=== PATIENT | female | born 1935 | race Caucasian/White ===

== ENCOUNTER 2016-07-29 08:53 | Inpatient (IN) | payer MEDICARE, BC ==
[2016-07-29] MEDS: SODIUM CHLORIDE 0.9% FLUSH 10 ML SOL IV PRN ×4 (09:15→21:50)
[2016-07-29 09:18] LABS: BASOPHILS % (AUTO) 1 % (0-3); EOSINOPHILS % (AUTO) 1 % (0-9); HEMATOCRIT 36 % (35-47); MEAN CORPUSCULAR HGB CONC 31.4 gm/dl (32.0-36.0); MONOCYTES % (AUTO) 7.7 % (0-12); NEUTROPHILS % (AUTO) 78.7 % (37-80)
[2016-07-29 09:19] LABS: MEAN CORPUSCULAR VOLUME 79 fL (81-99)
[2016-07-29] MEDS ORDERED: FUROSEMIDE 100 MG SOL ONE (09:30)
[2016-07-29] MEDS ORDERED: MORPHINE SULFATE 10 MG/ML SOL IV ONE (09:36)
[2016-07-29] MEDS ORDERED: FUROSEMIDE 40 MG SOL IV ONE (09:36)
[2016-07-29 09:37] LABS: CALCIUM 8.7 mg/dl (8.5-10.1); POTASSIUM 4.9 mMol/L (3.5-5.1)
[2016-07-29 09:46] LABS: ANISOCYTOSIS SLIGHT AMT
[2016-07-29 09:47] LABS: OVALOCYTES PRESENT
[2016-07-29] MEDS ORDERED: MORPHINE SULFATE 10 MG/ML SOL ONE (09:56)
[2016-07-29] MEDS ORDERED: METOLAZONE 2.5 MG TAB PO ONE (10:23)
[2016-07-29] MEDS ORDERED: LABETALOL HYDROCHLORIDE 5 MG/ML SOL IV ONE ×2 (11:00→11:10)
[2016-07-29] MEDS ORDERED: HYDRALAZINE HYDROCHLORIDE 20 MG/ML SOL IV ONE (11:00)
[2016-07-29] MEDS ORDERED: HYDRALAZINE HYDROCHLORIDE 20 MG/ML SOL ONE (11:02)
[2016-07-29] MEDS ORDERED: LABETALOL HYDROCHLORIDE 5 MG/ML SOL IV PRN (13:04)
[2016-07-29] MEDS ORDERED: PATIENT EDUCATION 1 MISC ONE (14:03)
[2016-07-29] MEDS: CARVEDILOL 12.5 MG TAB PO SCH ×2 (15:08→21:45)
[2016-07-29] MEDS: GLIPIZIDE 2.5 MG TER PO SCH ×2 (15:08→21:45)
[2016-07-29] MEDS: LOSARTAN POTASSIUM 50 MG TAB PO SCH (15:08)
[2016-07-29] MEDS: ASPIRIN 81 MG CHEWABLE CTB PO SCH (15:08)
[2016-07-29] MEDS: POTASSIUM CHLORIDE 10 MEQ TER PO SCH (15:09)
[2016-07-29] MEDS: AMOXICILLIN 125/5 ML BOTTLE PO SCH (15:09)
[2016-07-29] MEDS: ENOXAPARIN 40 MG SOL SC SCH (15:09)
[2016-07-29] MEDS: FUROSEMIDE 40 MG SOL IV SCH ×2 (15:10→21:50)
[2016-07-29] MEDS: ROPINIROLE HYDROCHLORIDE 0.25 MG PO SCH (21:45)
[2016-07-29] MEDS: METFORMIN HYDROCHLORIDE 500 MG TAB PO SCH (21:45)
[2016-07-30] MEDS: LEVOTHYROXINE SODIUM 50 MCG TAB PO SCH (06:47)
[2016-07-30] MEDS ORDERED: METOLAZONE 2.5 MG TAB PO SCH (07:00)
[2016-07-30 07:39] LABS: CALCIUM 8.2 mg/dl (8.5-10.1); POTASSIUM 4.3 mMol/L (3.5-5.1)
[2016-07-30] MEDS: CARVEDILOL 12.5 MG TAB PO SCH ×2 (08:49→21:02)
[2016-07-30] MEDS: GLIPIZIDE 2.5 MG TER PO SCH ×2 (08:49→21:01)
[2016-07-30] MEDS: LOSARTAN POTASSIUM 50 MG TAB PO SCH (08:49)
[2016-07-30] MEDS: ASPIRIN 81 MG CHEWABLE CTB PO SCH (08:49)
[2016-07-30] MEDS: METFORMIN HYDROCHLORIDE 500 MG TAB PO SCH ×2 (08:50→20:04)
[2016-07-30] MEDS: POTASSIUM CHLORIDE 10 MEQ TER PO SCH (08:50)
[2016-07-30] MEDS: ENOXAPARIN 40 MG SOL SC SCH (08:51)
[2016-07-30] MEDS ORDERED: FAMOTIDINE 20 MG TAB PO PRN (09:00)
[2016-07-30] MEDS ORDERED: FUROSEMIDE 40 MG SOL IV SCH (09:30)
[2016-07-30] MEDS ORDERED: AMLODIPINE 5 MG TAB PO SCH (10:31)
[2016-07-30] MEDS: AMOXICILLIN 125/5 ML BOTTLE PO SCH (10:34)
[2016-07-30] MEDS: SODIUM CHLORIDE 0.9% FLUSH 10 ML SOL IV PRN ×2 (10:35→21:03)
[2016-07-30 21:00] VITALS: RESP 20
[2016-07-30] MEDS: ROPINIROLE HYDROCHLORIDE 0.25 MG PO SCH (21:01)
[2016-07-31] MEDS: LEVOTHYROXINE SODIUM 50 MCG TAB PO SCH (06:24)
[2016-07-31 07:34] LABS: CALCIUM 7.9 mg/dl (8.5-10.1); POTASSIUM 4.7 mMol/L (3.5-5.1)
[2016-07-31 07:39] LABS: BASOPHILS % (AUTO) 1 % (0-3); EOSINOPHILS % (AUTO) 1 % (0-9); HEMATOCRIT 30 % (35-47); MEAN CORPUSCULAR HGB CONC 33.7 gm/dl (32.0-36.0); MONOCYTES % (AUTO) 9.9 % (0-12); NEUTROPHILS % (AUTO) 72.5 % (37-80)
[2016-07-31 07:42] LABS: MEAN CORPUSCULAR VOLUME 79 fL (81-99)
[2016-07-31] MEDS ORDERED: FUROSEMIDE 40 MG SOL IV SCH (09:00)
[2016-07-31] MEDS: CARVEDILOL 12.5 MG TAB PO SCH ×2 (09:18→20:09)
[2016-07-31] MEDS: AMOXICILLIN 125/5 ML BOTTLE PO SCH (09:18)
[2016-07-31] MEDS: ASPIRIN 81 MG CHEWABLE CTB PO SCH (09:18)
[2016-07-31] MEDS: POTASSIUM CHLORIDE 10 MEQ TER PO SCH (09:19)
[2016-07-31] MEDS: GLIPIZIDE 2.5 MG TER PO SCH ×2 (09:19→20:09)
[2016-07-31] MEDS: AMLODIPINE 5 MG TAB PO SCH (09:20)
[2016-07-31] MEDS: ENOXAPARIN 40 MG SOL SC SCH (09:20)
[2016-07-31] MEDS: FUROSEMIDE 40 MG TAB PO SCH (09:23)
[2016-07-31] MEDS: TRADJENTA 5 MG PO SCH (13:23)
[2016-07-31] MEDS: ROPINIROLE HYDROCHLORIDE 0.25 MG PO SCH (20:10)
[2016-08-01] MEDS: LEVOTHYROXINE SODIUM 50 MCG TAB PO SCH (06:41)
[2016-08-01 07:24] LABS: CALCIUM 8.2 mg/dl (8.5-10.1); POTASSIUM 4.2 mMol/L (3.5-5.1)
[2016-08-01 08:01] VITALS: BP 133/64; PULSE 67; TEMP 97.2; O2SAT 94
[2016-08-01] MEDS: AMOXICILLIN 125/5 ML BOTTLE PO SCH (08:48)
[2016-08-01] MEDS: ASPIRIN 81 MG CHEWABLE CTB PO SCH (08:49)
[2016-08-01] MEDS: CARVEDILOL 12.5 MG TAB PO SCH (08:49)
[2016-08-01] MEDS: POTASSIUM CHLORIDE 10 MEQ TER PO SCH (08:50)
[2016-08-01] MEDS: GLIPIZIDE 2.5 MG TER PO SCH (08:50)
[2016-08-01] MEDS: FUROSEMIDE 40 MG TAB PO SCH (08:50)
[2016-08-01] MEDS: ENOXAPARIN 40 MG SOL SC SCH (08:51)
[2016-08-01] MEDS: TRADJENTA 5 MG PO SCH (08:51)
[2016-08-01] MEDS: AMLODIPINE 5 MG TAB PO SCH (08:51)
== END 2016-08-01 11:02 | disposition home or self-care (01) | DRG 292 ==
LOC: ED 08:53 → ACUTE CARE 12:09
PROVIDERS: ADMIT Family Medicine; ATTEND Family Medicine
DX: I50.9 Heart failure, unspecified (principal); I16.9 Hypertensive crisis, unspecified; I13.0 Hypertensive heart and chronic kidney disease with heart failure and stage 1 through stage 4 chronic kidney disease, or unspecified chronic kidney disease; N18.3 Chronic kidney disease, stage 3 (moderate); Z85.3 Personal history of malignant neoplasm of breast; E11.9 Type 2 diabetes mellitus without complications; E03.9 Hypothyroidism, unspecified; Z79.84 Long term (current) use of oral hypoglycemic drugs; R60.0 Localized edema; R09.02 Hypoxemia; R91.8 Other nonspecific abnormal finding of lung field
CPT/HCPCS: 36415; 51798; 71010; 71275; 80048; 82962; 83880; 84484; 85025; 85378; 93005; 93012; 93306; 94760; 94762; 96374; 96375; 99284; 99285; J0360; J1650; J1940; J2270; Q9967

== ENCOUNTER 2016-10-21 13:32 | Inpatient (IN) | payer MEDICARE, BC ==
[2016-10-21] MEDS ORDERED: FUROSEMIDE 20mg SOL IV ONE (14:13)
[2016-10-21] MEDS ORDERED: SOLUMEDROL 125 MG/2 ML 125 MG/2 ML PDS IV ONE (14:14)
[2016-10-21] MEDS ORDERED: ALBUTEROL NEB SOL 2.5MG/3ML 1 VIAL SOL NEB PRN (14:32)
[2016-10-21] MEDS: ALBUTEROL/IPRATROPIUM 1 VIAL SOL INH SCH ×2 (15:08→21:08)
[2016-10-21] MEDS: NOVOLOG FLEXPEN SC SCH ×2 (16:26→21:11)
[2016-10-21] MEDS ORDERED: RANITIDINE HCL 150 MG TAB PO PRN (20:12)
[2016-10-21] MEDS: GLIPIZIDE 2.5 MG TER PO SCH ×2 (21:12→22:49)
[2016-10-21] MEDS: CARVEDILOL 12.5 MG TAB PO SCH (21:12)
[2016-10-21] MEDS: ENOXAPARIN 40 MG SOL SC SCH (21:13)
[2016-10-21] MEDS: SODIUM CHLORIDE 0.9% FLUSH 10 ML SOL IV SCH (21:14)
[2016-10-21] MEDS: SOLUMEDROL 125 MG/2 ML 125 MG/2 ML PDS IV SCH (21:14)
[2016-10-21] MEDS: ROPINIROLE HCL 1 MG TAB PO SCH (22:49)
[2016-10-22] MEDS: ALBUTEROL/IPRATROPIUM 1 VIAL SOL INH SCH ×4 (01:35→20:30)
[2016-10-22] MEDS: SODIUM CHLORIDE 0.9% FLUSH 10 ML SOL IV SCH ×7 (02:43→20:48)
[2016-10-22] MEDS: SOLUMEDROL 125 MG/2 ML 125 MG/2 ML PDS IV SCH ×4 (02:43→20:25)
[2016-10-22] MEDS ORDERED: LEVOTHYROXINE 0.025MG 0.025 MG TAB PO SCH (07:00)
[2016-10-22 07:33] LABS: ALBUMIN 3.1 gm/dl (3.4-5.0); CALCIUM 8.8 mg/dl (8.5-10.1)
[2016-10-22] MEDS ORDERED: SODIUM CHLORIDE 0.9% 500 ML 500 ML IV ONE (07:46)
[2016-10-22 07:50] LABS: BASOPHILS % (AUTO) 0 % (0-3); EOSINOPHILS % (AUTO) 0 % (0-9); HEMATOCRIT 32 % (35-47); MEAN CORPUSCULAR HGB CONC 32.5 gm/dl (32.0-36.0); MONOCYTES % (AUTO) 0.8 % (0-12); NEUTROPHILS % (AUTO) 92.4 % (37-80)
[2016-10-22 07:54] LABS: MEAN CORPUSCULAR VOLUME 79 fL (81-99)
[2016-10-22] MEDS ORDERED: ROPINIROLE HCL 1 MG TAB PO PRN (08:08)
[2016-10-22] MEDS: NOVOLOG FLEXPEN SC SCH ×4 (08:43→20:38)
[2016-10-22] MEDS: GLIPIZIDE 2.5 MG TER PO SCH ×2 (08:46→20:23)
[2016-10-22] MEDS: AMLODIPINE 5 MG TAB PO SCH (08:47)
[2016-10-22] MEDS: ASPIRIN 81 MG CHEWABLE CTB PO SCH (08:47)
[2016-10-22] MEDS: CARVEDILOL 12.5 MG TAB PO SCH ×2 (08:47→20:23)
[2016-10-22] MEDS ORDERED: FAMOTIDINE 20 MG TAB PO PRN (10:07)
[2016-10-22] MEDS: TRADJENTA 5 MG PO SCH (14:05)
[2016-10-22] MEDS: LEVOTHYROXINE SODIUM 112 MCG TAB PO SCH (14:06)
[2016-10-22] MEDS: ENOXAPARIN 40 MG SOL SC SCH (20:38)
[2016-10-22] MEDS: ROPINIROLE HCL 1 MG TAB PO SCH (20:48)
[2016-10-23] MEDS: ALBUTEROL/IPRATROPIUM 1 VIAL SOL INH SCH ×4 (02:29→20:34)
[2016-10-23] MEDS: SOLUMEDROL 125 MG/2 ML 125 MG/2 ML PDS IV SCH ×2 (02:29→08:47)
[2016-10-23] MEDS: SODIUM CHLORIDE 0.9% FLUSH 10 ML SOL IV SCH ×5 (02:30→20:34)
[2016-10-23] MEDS: LEVOTHYROXINE SODIUM 112 MCG TAB PO SCH (07:28)
[2016-10-23 08:04] LABS: CALCIUM 8.2 mg/dl (8.5-10.1); POTASSIUM 4.7 mMol/L (3.5-5.1)
[2016-10-23] MEDS: NOVOLOG FLEXPEN SC SCH ×4 (08:40→20:31)
[2016-10-23] MEDS: GLIPIZIDE 2.5 MG TER PO SCH ×2 (08:41→20:33)
[2016-10-23] MEDS: ASPIRIN 81 MG CHEWABLE CTB PO SCH (08:42)
[2016-10-23] MEDS: CARVEDILOL 12.5 MG TAB PO SCH ×2 (08:42→20:33)
[2016-10-23] MEDS: AMLODIPINE 5 MG TAB PO SCH (08:43)
[2016-10-23] MEDS: TRADJENTA 5 MG PO SCH (08:43)
[2016-10-23] MEDS: PREDNISONE 20 MG TAB PO SCH (12:19)
[2016-10-23] MEDS: ENOXAPARIN 40 MG SOL SC SCH (20:32)
[2016-10-23] MEDS: ROPINIROLE HCL 1 MG TAB PO SCH (20:33)
[2016-10-24] MEDS: ALBUTEROL/IPRATROPIUM 1 VIAL SOL INH SCH ×4 (02:40→21:01)
[2016-10-24] MEDS: SODIUM CHLORIDE 0.9% FLUSH 10 ML SOL IV SCH ×4 (02:53→20:54)
[2016-10-24] MEDS: LEVOTHYROXINE SODIUM 112 MCG TAB PO SCH (07:31)
[2016-10-24 07:39] LABS: CALCIUM 7.9 mg/dl (8.5-10.1); POTASSIUM 4.2 mMol/L (3.5-5.1)
[2016-10-24 07:55] LABS: BASOPHILS % (AUTO) 0 % (0-3); EOSINOPHILS % (AUTO) 0 % (0-9); HEMATOCRIT 27 % (35-47); MEAN CORPUSCULAR HGB CONC 32.1 gm/dl (32.0-36.0); MONOCYTES % (AUTO) 5.1 % (0-12); NEUTROPHILS % (AUTO) 90.1 % (37-80)
[2016-10-24 07:59] LABS: MEAN CORPUSCULAR VOLUME 79 fL (81-99)
[2016-10-24] MEDS: PREDNISONE 20 MG TAB PO SCH (08:41)
[2016-10-24] MEDS: GLIPIZIDE 2.5 MG TER PO SCH ×2 (08:41→20:53)
[2016-10-24] MEDS: CARVEDILOL 12.5 MG TAB PO SCH ×2 (08:42→20:53)
[2016-10-24] MEDS: NOVOLOG FLEXPEN SC SCH ×4 (08:42→21:04)
[2016-10-24] MEDS: TRADJENTA 5 MG PO SCH (08:42)
[2016-10-24] MEDS: AMLODIPINE 5 MG TAB PO SCH (08:42)
[2016-10-24] MEDS: ASPIRIN 81 MG CHEWABLE CTB PO SCH (08:52)
[2016-10-24] MEDS: ROPINIROLE HCL 1 MG TAB PO SCH (20:52)
[2016-10-24] MEDS: ENOXAPARIN 40 MG SOL SC SCH (20:54)
[2016-10-25] MEDS: ALBUTEROL/IPRATROPIUM 1 VIAL SOL INH SCH ×2 (03:35→07:57)
[2016-10-25] MEDS: SODIUM CHLORIDE 0.9% FLUSH 10 ML SOL IV SCH ×2 (03:45→13:41)
[2016-10-25] MEDS: LEVOTHYROXINE SODIUM 112 MCG TAB PO SCH (06:43)
[2016-10-25 07:27] LABS: CALCIUM 8.2 mg/dl (8.5-10.1)
[2016-10-25 07:30] LABS: BASOPHILS % (AUTO) 0 % (0-3); EOSINOPHILS % (AUTO) 0 % (0-9); HEMATOCRIT 31 % (35-47); MEAN CORPUSCULAR HGB CONC 31.9 gm/dl (32.0-36.0); MONOCYTES % (AUTO) 10.1 % (0-12); NEUTROPHILS % (AUTO) 81.8 % (37-80)
[2016-10-25 07:40] LABS: MEAN CORPUSCULAR VOLUME 79 fL (81-99)
[2016-10-25 08:01] VITALS: PULSE 72; RESP 20; O2SAT 95
[2016-10-25 08:24] VITALS: BP 118/78; TEMP 97.5
[2016-10-25] MEDS: NOVOLOG FLEXPEN SC SCH ×2 (08:25→13:41)
[2016-10-25] MEDS: GLIPIZIDE 2.5 MG TER PO SCH (08:27)
[2016-10-25] MEDS: AMLODIPINE 5 MG TAB PO SCH (08:27)
[2016-10-25] MEDS: CARVEDILOL 12.5 MG TAB PO SCH (08:27)
[2016-10-25] MEDS: ASPIRIN 81 MG CHEWABLE CTB PO SCH (08:27)
[2016-10-25] MEDS: PREDNISONE 20 MG TAB PO SCH (08:28)
[2016-10-25] MEDS: TRADJENTA 5 MG PO SCH (08:28)
== END 2016-10-25 13:30 | disposition home or self-care (01) | DRG 192 ==
LOC: ACUTE CARE 13:32
PROVIDERS: ADMIT Emergency Medicine; ATTEND Emergency Medicine
PROC: 5A09357 Assistance with Respiratory Ventilation, Less than 24 Consecutive Hours, Continuous Positive Airway Pressure (ICD-10-PCS; principal; 2016-10-22)
PROC: 5A09357 Assistance with Respiratory Ventilation, Less than 24 Consecutive Hours, Continuous Positive Airway Pressure (ICD-10-PCS; 2016-10-23)
DX: J44.1 Chronic obstructive pulmonary disease with (acute) exacerbation (principal); E11.22 Type 2 diabetes mellitus with diabetic chronic kidney disease; Z99.81 Dependence on supplemental oxygen; D64.9 Anemia, unspecified; G47.33 Obstructive sleep apnea (adult) (pediatric); N18.3 Chronic kidney disease, stage 3 (moderate); E03.9 Hypothyroidism, unspecified; Z79.4 Long term (current) use of insulin; R91.8 Other nonspecific abnormal finding of lung field; R60.9 Edema, unspecified
CPT/HCPCS: 36415; 71250; 80048; 80053; 82272; 82962; 83880; 85025; 94150; 94640; 94664; J1650; J1940; J2930; J7620; J1815

== ENCOUNTER 2017-08-04 14:07 | Outpatient (CLI) | payer MEDICARE, BC ==
[2016-10-25 08:01] VITALS: O2SAT 95
== END 2017-08-04 14:08 | disposition home or self-care (01) | DRG 554 ==
LOC: CONVCARE 14:07
PROVIDERS: ATTEND Orthopaedic Surgery
DX: M19.042 Primary osteoarthritis, left hand (principal); M19.041 Primary osteoarthritis, right hand
CPT/HCPCS: 73130

== ENCOUNTER 2018-06-25 12:00 | Inpatient (IN) | payer BC ==
[2018-06-25] MEDS: SODIUM CHLORIDE 0.9% FLUSH 10 ML SOL IV PRN ×4 (12:55→21:43)
[2018-06-25 13:12] LABS: HEMATOCRIT 35 % (35-47); HEMOGLOBIN 11.1 gm/dl (12.0-15.5); MEAN CORPUSCULAR HEMOGLOBIN 26.6 pg (27.0-32.0); MEAN CORPUSCULAR HGB CONC 31.5 gm/dl (32.0-36.0); MEAN CORPUSCULAR VOLUME 84 fL (81-99)
[2018-06-25 13:16] LABS: CALCIUM 8.6 mg/dl (8.5-10.1); CREATININE 1.22 mg/dl (0.60-1.00); POTASSIUM 4.3 mMol/L (3.5-5.1)
[2018-06-25 14:09] LABS: BAND NEUTROPHILS % (MANUAL) 1 %; LYMPHOCYTES % (MANUAL) 10 % (10-50); NEUTROPHILS % (MANUAL) 79 % (37-80)
[2018-06-25 14:10] LABS: BASOPHILS % (MANUAL) 0 % (0-3); EOSINOPHILS % (MANUAL) 0 % (0-9); MONOCYTES % (MANUAL) 10 % (0-12); NORMAL RBCS NORMAL RBCS
[2018-06-25] MEDS ORDERED: FAMOTIDINE 20 MG TAB PO PRN (15:02)
[2018-06-25] MEDS ORDERED: LEVOFLOXACIN 25 MG/ML 750 MG in SODIUM CHLORIDE 0.9% 250 ML 150 ML IV SCH (15:15)
[2018-06-25] MEDS ORDERED: FUROSEMIDE 40 MG SOL IV SCH (15:45)
[2018-06-25] MEDS ORDERED: LEVOFLOXACIN 25 MG/ML SOL IV ONE (15:47)
[2018-06-25] MEDS ORDERED: FUROSEMIDE 40 MG SOL ONE (15:48)
[2018-06-25] MEDS: ALBUTEROL/IPRATROPIUM 1 VIAL SOL INH SCH ×2 (16:18→20:24)
[2018-06-25] MEDS ORDERED: GLIPIZIDE 2.5 MG TER ONE (20:22)
[2018-06-25] MEDS ORDERED: FUROSEMIDE 20mg SOL ONE (20:22)
[2018-06-25] MEDS ORDERED: FUROSEMIDE 20mg SOL IV ONE (20:32)
[2018-06-25] MEDS: CARVEDILOL 12.5 MG TAB PO SCH (20:33)
[2018-06-25] MEDS: GLIPIZIDE 10 MG PO SCH (20:34)
[2018-06-26 07:37] LABS: CALCIUM 8.1 mg/dl (8.5-10.1); CREATININE 1.31 mg/dl (0.60-1.00); POTASSIUM 3.8 mMol/L (3.5-5.1)
[2018-06-26] MEDS ORDERED: ENOXAPARIN 40 MG SOL SC SCH (09:00)
[2018-06-26] MEDS ORDERED: POTASSIUM CHLORIDE 10 MEQ TER ONE (09:41)
[2018-06-26] MEDS: AMLODIPINE 5 MG TAB PO SCH (09:43)
[2018-06-26] MEDS: ASPIRIN 81 MG CHEWABLE CTB PO SCH (09:43)
[2018-06-26] MEDS: CARVEDILOL 12.5 MG TAB PO SCH ×2 (09:43→21:22)
[2018-06-26] MEDS: LOSARTAN POTASSIUM 50 MG TAB PO SCH (09:43)
[2018-06-26] MEDS: METFORMIN HYDROCHLORIDE 500 MG TAB PO SCH (09:44)
[2018-06-26] MEDS: POTASSIUM CHLORIDE 10 MEQ CAPSULE PO SCH (09:44)
[2018-06-26] MEDS: ENOXAPARIN 30 MG SOL SC SCH (09:45)
[2018-06-26] MEDS: Non-Formulary Medication MISC (Levothyroxine Sodium 112 Mcg 112 MCG) PO SCH (09:45)
[2018-06-26] MEDS: GLIPIZIDE 10 MG PO SCH ×2 (09:45→21:24)
[2018-06-26] MEDS: ALBUTEROL/IPRATROPIUM 1 VIAL SOL INH SCH ×4 (09:48→21:22)
[2018-06-26] MEDS: SODIUM CHLORIDE 0.9% FLUSH 10 ML SOL IV PRN ×2 (09:51→18:23)
[2018-06-26] MEDS: FUROSEMIDE 40 MG SOL IV SCH (10:00)
[2018-06-26] MEDS ORDERED: FUROSEMIDE 20mg SOL IV ONE (18:07)
[2018-06-27] MEDS: Non-Formulary Medication MISC (Levothyroxine Sodium 112 Mcg 112 MCG) PO SCH (06:22)
[2018-06-27 07:28] LABS: HEMATOCRIT 29 % (35-47); HEMOGLOBIN 9.4 gm/dl (12.0-15.5); MEAN CORPUSCULAR HEMOGLOBIN 27.1 pg (27.0-32.0); MEAN CORPUSCULAR HGB CONC 32.4 gm/dl (32.0-36.0); MEAN CORPUSCULAR VOLUME 84 fL (81-99)
[2018-06-27 07:31] LABS: CALCIUM 7.9 mg/dl (8.5-10.1); CARBON DIOXIDE 28.1 mEq/L (21-32); CREATININE 1.38 mg/dl (0.60-1.00); POTASSIUM 3.8 mMol/L (3.5-5.1)
[2018-06-27 08:31] LABS: BAND NEUTROPHILS % (MANUAL) 0 %; LYMPHOCYTES % (MANUAL) 19 % (10-50); NEUTROPHILS % (MANUAL) 70 % (37-80)
[2018-06-27 08:32] LABS: BASOPHILS % (MANUAL) 0 % (0-3); EOSINOPHILS % (MANUAL) 0 % (0-9); MONOCYTES % (MANUAL) 11 % (0-12); NORMAL RBCS NORMAL RBCS
[2018-06-27] MEDS: ASPIRIN 81 MG CHEWABLE CTB PO SCH (09:20)
[2018-06-27] MEDS: CARVEDILOL 12.5 MG TAB PO SCH ×2 (09:20→20:24)
[2018-06-27] MEDS: ALBUTEROL/IPRATROPIUM 1 VIAL SOL INH SCH ×4 (09:21→20:25)
[2018-06-27] MEDS: LOSARTAN POTASSIUM 50 MG TAB PO SCH (09:21)
[2018-06-27] MEDS: METFORMIN HYDROCHLORIDE 500 MG TAB PO SCH (09:24)
[2018-06-27] MEDS: POTASSIUM CHLORIDE 10 MEQ CAPSULE PO SCH (09:24)
[2018-06-27] MEDS: GLIPIZIDE 10 MG PO SCH ×2 (09:24→20:24)
[2018-06-27] MEDS: AMLODIPINE 5 MG TAB PO SCH (09:25)
[2018-06-27] MEDS: ENOXAPARIN 30 MG SOL SC SCH (09:38)
[2018-06-27] MEDS: FUROSEMIDE 40 MG SOL IV SCH (09:39)
[2018-06-27] MEDS: SODIUM CHLORIDE 0.9% FLUSH 10 ML SOL IV PRN ×3 (09:40→20:41)
[2018-06-27] MEDS ORDERED: LEVOFLOXACIN 500 MG TAB PO SCH (10:45)
[2018-06-27] MEDS ORDERED: LEVOFLOXACIN 25 MG/ML 750 MG in SODIUM CHLORIDE 0.9% 250 ML 150 ML IV SCH (18:00)
[2018-06-28] MEDS ORDERED: LEVOTHYROXINE SODIUM 112 MCG TAB PO SCH (07:00)
[2018-06-28 07:19] LABS: CALCIUM 8.2 mg/dl (8.5-10.1); CARBON DIOXIDE 29.8 mEq/L (21-32); CREATININE 1.62 mg/dl (0.60-1.00); POTASSIUM 4.1 mMol/L (3.5-5.1)
[2018-06-28 07:21] LABS: BASOPHILS % (AUTO) 1 % (0-3); EOSINOPHILS % (AUTO) 2 % (0-9); HEMATOCRIT 30 % (35-47); HEMOGLOBIN 9.6 gm/dl (12.0-15.5); LYMPHOCYTES % (AUTO) 15.9 % (10-50); MEAN CORPUSCULAR HEMOGLOBIN 26.4 pg (27.0-32.0); MEAN CORPUSCULAR HGB CONC 31.6 gm/dl (32.0-36.0); MEAN CORPUSCULAR VOLUME 84 fL (81-99); MONOCYTES % (AUTO) 10.7 % (0-12); NEUTROPHILS % (AUTO) 70.7 % (37-80)
[2018-06-28] MEDS ORDERED: FUROSEMIDE 40 MG TAB PO SCH (09:00)
[2018-06-28] MEDS ORDERED: POTASSIUM CHLORIDE 10 MEQ TER PO SCH (09:00)
[2018-06-28] MEDS: METFORMIN HYDROCHLORIDE 500 MG TAB PO SCH (09:11)
[2018-06-28] MEDS: CARVEDILOL 12.5 MG TAB PO SCH (09:11)
[2018-06-28] MEDS: AMLODIPINE 5 MG TAB PO SCH (09:11)
[2018-06-28] MEDS: LOSARTAN POTASSIUM 50 MG TAB PO SCH (09:11)
[2018-06-28] MEDS: ASPIRIN 81 MG CHEWABLE CTB PO SCH (09:12)
[2018-06-28] MEDS: GLIPIZIDE 10 MG PO SCH (09:12)
[2018-06-28] MEDS: ENOXAPARIN 30 MG SOL SC SCH (09:14)
[2018-06-28] MEDS: ALBUTEROL/IPRATROPIUM 1 VIAL SOL INH SCH (09:14)
[2018-06-28 09:18] VITALS: PULSE 75; RESP 20
[2018-06-28 09:27] VITALS: BP 144/72; TEMP 97.7
[2018-06-28 09:47] VITALS: O2SAT 97
== END 2018-06-28 11:00 | disposition home or self-care (01) | DRG 291 ==
LOC: ED 12:00 → UNDOADMIN 14:52 → ACUTE CARE 14:52
PROVIDERS: ADMIT Family Medicine; ATTEND Family Medicine
DX: I50.9 Heart failure, unspecified (principal); J18.9 Pneumonia, unspecified organism; E03.9 Hypothyroidism, unspecified; R05 Cough; E11.9 Type 2 diabetes mellitus without complications; R06.02 Shortness of breath
CPT/HCPCS: 36415; 71045; 71046; 80048; 82962; 83880; 85007; 85025; 85027; 93005; 94150; 94640; 99222; 99285; J1650; J1940; J1956; A9270; A9270-GY

== ENCOUNTER 2018-09-11 13:58 | Inpatient (IN) | payer BC ==
[2018-09-11] MEDS: FUROSEMIDE 20mg SOL IV SCH ×2 (15:56→20:02)
[2018-09-11] MEDS: SODIUM CHLORIDE 0.9% FLUSH 10 ML SOL IV SCH ×3 (15:57→21:46)
[2018-09-11] MEDS ORDERED: RANITIDINE HCL 150 MG TAB PO PRN (16:31)
[2018-09-11] MEDS ORDERED: ALBUTEROL NEB SOL 2.5MG/3ML 1 VIAL SOL INH PRN (16:31)
[2018-09-11] MEDS: NOVOLOG FLEXPEN SC SCH ×2 (17:41→20:07)
[2018-09-11] MEDS: ALBUTEROL/IPRATROPIUM 1 VIAL SOL INH SCH ×2 (17:58→20:06)
[2018-09-11] MEDS: GLIPIZIDE 2.5 MG TER PO SCH (20:06)
[2018-09-11] MEDS: BUDESONIDE 0.5 MG/2 ML AMPUL.NEB INH SCH (20:06)
[2018-09-11] MEDS: ASPIRIN 81 MG CHEWABLE CTB PO SCH (20:07)
[2018-09-11] MEDS: CARVEDILOL 12.5 MG TAB PO SCH (20:07)
[2018-09-11] MEDS: ROPINIROLE HCL 0.25 MG TABLET PO PRN (20:11)
[2018-09-12] MEDS: SODIUM CHLORIDE 0.9% FLUSH 10 ML SOL IV SCH ×4 (03:15→21:36)
[2018-09-12 07:23] LABS: CALCIUM 8.3 mg/dl (8.5-10.1); CARBON DIOXIDE 31.9 mEq/L (21-32); CREATININE 1.21 mg/dl (0.60-1.00); POTASSIUM 3.8 mMol/L (3.5-5.1)
[2018-09-12] MEDS ORDERED: LEVOTHYROXINE SODIUM 50 MCG TAB PO SCH (07:30)
[2018-09-12] MEDS: NOVOLOG FLEXPEN SC SCH ×4 (09:04→20:27)
[2018-09-12] MEDS: ALBUTEROL/IPRATROPIUM 1 VIAL SOL INH SCH ×4 (09:22→20:50)
[2018-09-12] MEDS: CARVEDILOL 12.5 MG TAB PO SCH ×2 (09:23→20:44)
[2018-09-12] MEDS: GLIPIZIDE 2.5 MG TER PO SCH (09:23)
[2018-09-12] MEDS: AMLODIPINE 5 MG TAB PO SCH (09:24)
[2018-09-12] MEDS: LOSARTAN POTASSIUM 50 MG TAB PO SCH (09:24)
[2018-09-12] MEDS: BUDESONIDE 0.5 MG/2 ML AMPUL.NEB INH SCH ×2 (09:25→20:34)
[2018-09-12] MEDS: METFORMIN HYDROCHLORIDE 500 MG TAB PO SCH (09:30)
[2018-09-12] MEDS: FUROSEMIDE 20mg SOL IV SCH ×2 (09:30→14:29)
[2018-09-12] MEDS ORDERED: FAMOTIDINE 20 MG TAB PO PRN (10:00)
[2018-09-12] MEDS: ASPIRIN 81 MG CHEWABLE CTB PO SCH (20:35)
[2018-09-12] MEDS: ROPINIROLE HCL 0.25 MG TABLET PO PRN (21:36)
[2018-09-13] MEDS: SODIUM CHLORIDE 0.9% FLUSH 10 ML SOL IV SCH (05:59)
[2018-09-13] MEDS ORDERED: LEVOTHYROXINE SODIUM 112 MCG TAB PO SCH (07:00)
[2018-09-13 07:24] LABS: CALCIUM 7.9 mg/dl (8.5-10.1); CARBON DIOXIDE 31.7 mEq/L (21-32); CREATININE 1.31 mg/dl (0.60-1.00); POTASSIUM 3.9 mMol/L (3.5-5.1)
[2018-09-13 07:29] VITALS: BP 129/72; TEMP 97.4
[2018-09-13] MEDS: AMLODIPINE 5 MG TAB PO SCH (09:13)
[2018-09-13] MEDS: LOSARTAN POTASSIUM 50 MG TAB PO SCH (09:13)
[2018-09-13] MEDS: METFORMIN HYDROCHLORIDE 500 MG TAB PO SCH (09:13)
[2018-09-13] MEDS: ALBUTEROL/IPRATROPIUM 1 VIAL SOL INH SCH (09:14)
[2018-09-13] MEDS: FUROSEMIDE 20mg SOL IV SCH (09:14)
[2018-09-13] MEDS ORDERED: FUROSEMIDE 20 MG TAB PO SCH (09:15)
[2018-09-13] MEDS: CARVEDILOL 12.5 MG TAB PO SCH (09:18)
[2018-09-13] MEDS: NOVOLOG FLEXPEN SC SCH (09:19)
[2018-09-13 09:20] VITALS: RESP 18
[2018-09-13] MEDS: BUDESONIDE 0.5 MG/2 ML AMPUL.NEB INH SCH (09:24)
[2018-09-13 09:25] VITALS: PULSE 66; O2SAT 99
== END 2018-09-13 10:40 | disposition home or self-care (01) | DRG 293 ==
LOC: ACUTE CARE 13:58
PROVIDERS: ADMIT Family Medicine; ATTEND Family Medicine
DX: I50.9 Heart failure, unspecified (principal); N18.3 Chronic kidney disease, stage 3 (moderate); G47.33 Obstructive sleep apnea (adult) (pediatric); E11.9 Type 2 diabetes mellitus without complications
CPT/HCPCS: 36415; 80048; 82962; 93012; 93306; 94640; J1940; J7613; A9270-GY; J1815